=== PATIENT | female | born 1940 | race Two or more races ===

== ENCOUNTER 2023-10-30 12:16 | Emergency (ER) | payer OTHER ==
[~2023-10-30] VITALS: Ht 157.5 cm; Wt 67.1 kg
[2023-10-30] MEDS ORDERED: ATORVASTATIN CA40 MG PO (12:24)
[2023-10-30] MEDS ORDERED: AMLODIPINE BESYL5 MG PO (12:25)
[2023-10-30] MEDS ORDERED: GLIMEPIRIDE2 M1 PO (12:25)
[2023-10-30] MEDS ORDERED: METFORMIN HCL850 M1 PO (12:25)
[2023-10-30 12:57] LABS: HEMATOCRIT 40.8 % (36.0-45.00); HEMOGLOBIN 13.5 g/dL (12.0-15.00); MEAN CORPUSCULAR HEMOGLOBIN 27.9 pg (27.00-32.0); MEAN CORPUSCULAR HGB CONC 33.2 g/dl (32.0-36.0); PLATELET COUNT 273 K/uL (150-450); RED BLOOD COUNT 4.86 M/uL (4.00-6.00); RED CELL DISTRIBUTION WIDTH 13.6 % (11.5-14.5)
[2023-10-30 13:35] LABS: CALCIUM 9.5 mg/dL (8.5-10.1); CREATININE SERUM 0.84 mg/dL (0.55-1.02); GFR 64.44; POTASSIUM 4.09 mEq/L (3.5-5.1)
[2023-10-30 13:54] LABS: URINE APPEARANCE Clear; URINE BILIRRUBIN Negative (NEGATIVE); URINE BLOOD Negative; URINE COLOR Yellow; URINE GLUCOSE Negative (NEGATIVE); URINE LEUKOCYTE Small; URINE NITRATE Negative; URINE PROTEIN Negative (NEGATIVE); URINE UROBILINOGEN 0.2 E.U./dl
[2023-10-30 13:55] LABS: URINE BACTERIA 66.7 uL (0.0-1933); URINE EPITHELIAL CELLS 3.8 uL (0.0-38.8); URINE WBC 26.8 uL (0.0-23.2)
== END 2023-10-30 16:17 | disposition home or self-care (01) ==
LOC: ER 12:16
PROVIDERS: Emergency Medicine
DX: R20.0 Anesthesia of skin (principal); E11.9 Type 2 diabetes mellitus without complications; Z79.84 Long term (current) use of oral hypoglycemic drugs; E78.00 Pure hypercholesterolemia, unspecified; G45.9 Transient cerebral ischemic attack, unspecified

== ENCOUNTER 2024-10-24 08:58 | Emergency (ER) | payer OTHER ==
[~2024-10-24] VITALS: Ht 157.5 cm; Wt 67.6 kg
[~2024-10-24 08:58] MED LIST: AMLODIPINE BESYL5 MG PO; ATORVASTATIN CA40 MG PO; GLIMEPIRIDE2 M1 PO; METFORMIN HCL850 M1 PO
[2024-10-24] MEDS ORDERED: CANDESARTAN-HC1 EACH PO (09:17)
== END 2024-10-24 10:57 | disposition home or self-care (01) ==
LOC: ER 08:59
DX: U07.1 COVID-19 (principal); J06.9 Acute upper respiratory infection, unspecified; R53.81 Other malaise